=== PATIENT | female | born 1990 | race Caucasian/White ===

== ENCOUNTER 2022-02-03 13:56 | Emergency (ER) | payer BC ==
[~2022-02-03] VITALS: Ht 160 cm; Wt 72.7 kg
[2022-02-03 14:45] LABS: BASO # 0.03 K/mm3 (0.02-0.10); EOS # 0.15 K/mm3 (0.04-0.40); EOS % 2.6 % (1.0-5.0); HEMATOCRIT 38.5 % (37.0-47.0); HEMOGLOBIN 13.1 g/dL (12.5-16.0); LYMPH# 1.56 K/mm3 (1.50-4.00); MEAN CELL VOLUME 90 fl (78-100); MEAN CORPUSCULAR HEMOGLOBIN 31 pg (27-31); MEAN CORPUSCULAR HGB CONC 34 g/dL (33-37); MEAN PLATELET VOLUME 10.1 fl (7.4-10.4); MONO # 0.38 K/mm3 (0.20-0.80); NEU # 3.62 K/mm3 (1.40-6.50); PLATELET COUNT 203 K/mm3 (130-400); RED CELL DISTRIBUTION WIDTH 12.7 % (11.5-14.5); WHITE BLOOD COUNT 5.7 K/mm3 (4.8-10.8)
[2022-02-03 14:53] LABS: ALBUMIN 4.3 g/dL (3.5-5.0); POTASSIUM 4.2 mmol/L (3.5-5.1); SODIUM 140 mmol/L (136-145)
[2022-02-03 14:54] LABS: CALCIUM 9.4 mg/dL (8.3-10.5)
[2022-02-03 14:55] LABS: GLUCOSE 100 mg/dL (65-105); TOTAL PROTEIN 7.1 g/dL (6.4-8.3)
[2022-02-03 14:56] LABS: CARBON DIOXIDE 24 mmol/L (22-29)
[2022-02-03 14:57] LABS: TOTAL BILIRUBIN 0.5 mg/dL (0.2-1.2)
[2022-02-03 15:00] LABS: AST-SGOT 14 U/L (5-34)
[2022-02-03 15:02] LABS: ALT/SGPT 13 U/L (0-55)
[2022-02-03 15:08] LABS: D-DIMER 0.09 mg/L FEU (0.15-0.50)
[2022-02-03 15:46] LABS: URINE APPEARANCE HAZY; URINE BILIRUBIN NEGATIVE (NEGATIVE); URINE BLOOD NEGATIVE (NEGATIVE); URINE COLOR YELLOW; URINE GLUCOSE NEGATIVE (NEGATIVE); URINE KETONE NEGATIVE (NEGATIVE); URINE LEUKOCYTE ESTERASE TRACE (NEGATIVE); URINE NITRATE NEGATIVE (NEGATIVE); URINE PROTEIN(semi-quant) TRACE (NEGATIVE); URINE UROBILINOGEN NORMAL (NORMAL)
[2022-02-03 15:47] LABS: URINE MUCUS PRESENT (NOT PRESENT)
[2022-02-03 15:51] LABS: TROPONIN-I < 0.030 ng/mL (<0.030)
[2022-02-03 16:13] VITALS: BP 126/84
== END 2022-02-03 15:39 | disposition home or self-care (01) ==
LOC: ED 13:56
PROVIDERS: Family Medicine
DX: R07.89 Other chest pain (principal)

== ENCOUNTER → 2022-07-09 | Outpatient (CLI) | payer BC ==
[2022-07-09 10:08] LABS: BASO # 0.03 K/mm3 (0.02-0.10); EOS # 0.11 K/mm3 (0.04-0.40); EOS % 1.8 % (1.0-5.0); HEMOGLOBIN 13.3 g/dL (12.5-16.0); LYMPH# 1.58 K/mm3 (1.50-4.00); MEAN CELL VOLUME 92 fl (78-100); MEAN CORPUSCULAR HEMOGLOBIN 30 pg (27-31); MEAN CORPUSCULAR HGB CONC 33 g/dL (33-37); MEAN PLATELET VOLUME 10.1 fl (7.4-10.4); MONO # 0.27 K/mm3 (0.20-0.80); NEU # 4.07 K/mm3 (1.40-6.50); PLATELET COUNT 214 K/mm3 (130-400); RED BLOOD COUNT 4.37 M/mm3 (4.10-5.30); RED CELL DISTRIBUTION WIDTH 12.5 % (11.5-14.5); WHITE BLOOD COUNT 6.1 K/mm3 (4.8-10.8)
[2022-07-09 10:14] LABS: ALBUMIN 4.4 g/dL (3.5-5.0); POTASSIUM 4.1 mmol/L (3.5-5.1)
[2022-07-09 10:15] LABS: CALCIUM 9.3 mg/dL (8.3-10.5)
[2022-07-09 10:16] LABS: TOTAL PROTEIN 7.1 g/dL (6.4-8.3)
[2022-07-09 10:18] LABS: TOTAL BILIRUBIN 0.5 mg/dL (0.2-1.2)
== END ==
LOC: LAB 08:29
DX: M25.521 Pain in right elbow (principal); R53.83 Other fatigue

== ENCOUNTER → 2023-08-29 | Outpatient (CLI) | payer BC | LOC: RAD 10:31 | DX: R07.81 Pleurodynia (principal) ==